=== PATIENT | male | born 1965 | race Caucasian/White ===

== ENCOUNTER 2021-05-14 10:49 | Emergency (ER) | payer MEDICARE, MEDICAID, SELFPAY ==
[2021-05-14 10:56] VITALS: BP 139/65; PULSE 72; RESP 16; TEMP 36.8; O2SAT 100
--- NOTE | 2021-05-14 11:22 | ED.EAR ---
HPI - Ear Problem General Chief complaint: Ear Stated complaint: Ear pain History of Present Illness HPI Narrative: This is a 55-year-old male that comes in complaining of right ear pain patient informs me that he has had ear infection approximately 1 year ago the doctor treated him with Augmentin the seem to take the pain right away. Patient states that he has had this pain for about 2 days. Related Data Home Medications Medication Instructions Recorded Confirmed atorvastatin 05/14/21 clopidogrel 05/14/21 ezetimibe mg 05/14/21 insulin degludec [Tresiba SUBCUT 05/14/21 05/14/21 FlexTouch U-100] insulin lispro [Humalog U-100 05/14/21 Insulin] levothyroxine 05/14/21 lisinopril 05/14/21 metoprolol succinate PO 05/14/21 sertraline mg 05/14/21 Allergies Allergy/AdvReac Type Severity Reaction Status Date / Time No Known Allergies Allergy Verified 05/14/21 11:08 Review of Systems Review of Systems: Right ear pain All systems reviewed & are unremarkable except as noted in HPI and below PMFSH Family History Family History (Updated 01/18/14 @ 07:13 by DOCTOR UNKNOWN) Father Family history of mental disorder Depression Family history of congestive heart failure Family history of heart disease in male family member before age 55 Family history of hearing loss Mother Family history of mental disorder Depression Family history of anemia Family history of arthritis Family history of chronic obstructive pulmonary disease Family history of lung disease Family history of congestive heart failure Family history of heart disease in male family member before age 55 Sibling Family history of mental disorder Depression Family history of glaucoma Family history of alcoholism Social History Social History Smoking status: Current every day smoker Alcohol intake: current Comments At time as signature, I have reviewed and agree with nursing past medical, social, surgical and family history. Please see nursing chart for further information. There is no relevant family history pertinent to the presenting complaint. Exam Narrative: GENERAL:Well-appearing, well-nourished, and in no acute distress. HEAD:Normocephalic EYES: PERRLA ENT: Nares clear, no rhinorrhea or epistaxis. Mucous membranes moist. Right TM with erythema auditory canal red and swollen CHEST: Clear to auscultation. No respiratory distress. HEART: Regular rate and rhythm. EXTREMITIES: Normal range of motion. No edema. SKIN: Warm, dry, no rash. NEURO: No focal deficits. Alert and oriented x3. Course Vital Signs Vital signs: Vital Signs Temperature 98.2 F 05/14/21 10:56 Pulse Rate 72 05/14/21 10:56 Respiratory Rate 16 05/14/21 10:56 Blood Pressure 139/65 05/14/21 10:56 Pulse Oximetry 100 05/14/21 10:56 Temperature 98.2 F 05/14/21 10:56 Pulse Rate 72 05/14/21 10:56 Respiratory Rate 16 05/14/21 10:56 Blood Pressure 139/65 05/14/21 10:56 Pulse Oximetry 100 05/14/21 10:56 Medical Decision Making Vital Signs Vital Signs: Vital Signs Temperature 98.2 F 05/14/21 10:56 Pulse Rate 72 05/14/21 10:56 Respiratory Rate 16 05/14/21 10:56 Blood Pressure 139/65 05/14/21 10:56 Pulse Oximetry 100 05/14/21 10:56 Temperature 98.2 F 05/14/21 10:56 Pulse Rate 72 05/14/21 10:56 Respiratory Rate 16 05/14/21 10:56 Blood Pressure 139/65 05/14/21 10:56 Pulse Oximetry 100 05/14/21 10:56 Discharge Plan Discharge Clinical Impression: Otitis media Qualifiers: Otitis media type: unspecified Chronicity: acute Qualified Code(s): H66.90 - Otitis media, unspecified, unspecified ear Patient Disposition: Home, Self-Care Condition: Stable Instructions: Antibiotic Form, Ear Infection (ED), Earache (ED) Additional Instructions: Take pain medicines exactly as directed. If the doctor gave you a prescription medicine for pain, take it as prescribed
== END 2021-05-14 11:33 | disposition home or self-care (01) ==
PROVIDERS: Emergency Provider Nurse Practitioner Family; PCP Internal Medicine
DX: H66.91 Otitis media, unspecified, right ear (principal); F17.200 Nicotine dependence, unspecified, uncomplicated; Z95.5 Presence of coronary angioplasty implant and graft; E78.00 Pure hypercholesterolemia, unspecified; I10 Essential (primary) hypertension; E10.9 Type 1 diabetes mellitus without complications; E03.9 Hypothyroidism, unspecified
CPT/HCPCS: 99213; G0463

== ENCOUNTER 2024-01-12 09:41 | Outpatient (CLI) | payer MEDICARE, MEDICAID, SELFPAY ==
--- NOTE | ~2024-01-12 | US_ITS ---
TESTICULAR ULTRASOUND (Doppler ultrasound interrogation techniques used as needed for this exam.) Ordering provider: Wally [place], [place] History: . LEFT TESTICULAR PAIN . Comparison: None. FINDINGS: TESTICLES: Normal in size. The right measures 4.4x 2.9x 2.2 cm and the left measures 4.1x 2.2x 2.2 cm . Normal echogenicity bilaterally without mass lesion. Normal Doppler flow bilaterally. 5 mm cyst is seen inferiorly in the right testicle. Hypoechoic foci with shadowing suggestive of calcification ar e seen in the scrotal sac and separate from the testis. EPIDIDYMIDES: Normal in size. The right measures 0.7 cm and the left 0.7 cm. Normal echogenicity bila terally. Both demonstrate normal Doppler flow. HYDROCELE: Seen and the left side. VARICOCELE: None. OTHER ABNORMALITY: None seen. IMPRESSION: Small cyst in the right testicular. Scrotal calcifications in the left scrotum which may be due to ol d hematoma. Follow-up advised. Left small hydrocele Otherwise, normal testicular ultrasound. Reviewed, dictated and finalized at location A. IMPRESSION: Small cyst in the right testicular. Scrotal calcifications in the left scrotum which may be due to old hematoma. Follow-up advised. Left small hydrocele Other marroquin, normal testicular ultrasound.
== END 2024-01-12 09:42 | disposition home or self-care (01) ==
PROVIDERS: PCP Physician Assistant; Visit Provider Physician Assistant
DX: N50.812 Left testicular pain (principal); N44.2 Benign cyst of testis; N43.3 Hydrocele, unspecified
CPT/HCPCS: 76870; 93976